=== PATIENT | male | born 1980 | race Caucasian/White ===

== ENCOUNTER 2025-03-19 22:50 | Emergency (ER) | payer SELFPAY ==
[2025-03-19 22:51] VITALS: BP 210/120
[2025-03-19 23:40] VITALS: BP 194/115
--- NOTE | 2025-03-19 23:43 | ED.GENMED ---
History of Present Illness
General
Chief Complaint: Fever
Source: patient
Exam Limitations: none
Time Seen by Provider: 03/19/25 23:15
Nursing documentation reviewed up to this point in time: agreed with
History of Present Illness
History of Present Illness:
Note:
CHIEF COMPLAINT(S)
Fever and congestion.
HISTORY OF PRESENT ILLNESS
The patient is a 44-year-old male with pmh of HTN presenting with a history of fever and congestion over the past day. The symptoms include waking up at 4:30 AM and 11:30 AM feeling extremely hot, with fatigue persisting throughout the day. The
patient reported having a severe headache that has since improved. He experienced some congestion but denied any loss of smell or taste. The patient described a sore throat sensation as having 'sand in his throat,' which resolved. Initial attempts
to relieve symptoms with ibuprofen were ineffective. The patient reported coughing up yellow sputum and mentioned the congestion as similar to a typical sinus infection. No abdominal pain or vomiting was noted. The patient has a history of
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
resolved on follow-up. During this period, his kidneys were affected by high CPK levels necessitating a medication change.
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 He has not been in contact with anyone sick. 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
episodes resulting in significant symptoms. The patient took ibuprofen for the current episode with some effect noted.
PAST MEDICAL AND SURGICAL HISTORY
The patient has a past medical history significant for endocarditis and previous COVID pneumonia.
CHRONIC MEDICAL CONDITIONS SIGNIFICANTLY AFFECTING CARE
History of endocarditis and COVID pneumonia.
SOCIAL HISTORY
The patient reported working with electronics, potentially in a [place] environment.
REVIEW OF SYSTEMS
- Constitutional: Fever, fatigue.
- Neurological: History of a headache.
- Respiratory: Congestion, occasional productive cough with yellowish sputum . No significant pain, loss of smell, or taste reported.
- Gastrointestinal: No abdominal pain or vomiting.
PHYSICAL EXAM
General: Alert, no acute distress.
Skin: Warm, dry.
Head: Normocephalic, atraumatic.
Neck: Supple, trachea midline.
Eye Ears, Nose, Mouth and Throat: Oral mucosa moist.
Cardiovascular: Normal peripheral perfusion, no edema.
Respiratory: Non-labored respirations. No wheezes, rales, or rhonchi
Gastrointestinal: Abdomen nondistended.
Back: Normal range of motion, normal alignment.
Musculoskeletal: Normal ROM, normal strength.
Neurological: Alert and oriented to person, place, time, and situation, no focal neurological deficit observed.
Psychiatric: Cooperative, appropriate mood & affect.
PLAN
1. Conduct blood work to rule out sepsis and assess other potential infections.
2. Perform a COVID-19 test as part of the respiratory symptom evaluation.
3. Consider a chest X-ray to check for inhalation effects or lung involvement.
4. Monitor the effectiveness of ibuprofen and adjust treatment as necessary based on further test results.
DIFFERENTIAL DIAGNOSIS
The Differential Diagnosis includes, in no particular order and is not limited to:
1. Bacterial sinusitis
2. Viral respiratory infection (e.g., COVID-19)
3. Allergic rhinitis
4. Bronchitis
5. Pneumonia
6. Exacerbation of chronic sinusitis
7. Environmental exposure-related symptoms
8. Asthma/reactive airway disease
9. Chronic obstructive pulmonary disease
10. Influenza
CHART REVIEW
Reviewed physician office visit from 06/24/2021, reviewed discharge summary from 06/18/2021 when patient was seen for COVID-pneumonia and iatrogenic endocarditis
MDM/DISPOSITION
44-year-old male presents emergency department today with concerns of a fever and generalized fatigue as well as congestion. Happened the past day. He did test positive for COVID today. He does have a history of sepsis secondary to COVID however
he has no fever, no white count, and his CMP is unremarkable. She also test urinalysis as a source of infection however patient has no urinary symptoms and there is a lot of squamous cells will hold off on treatment at this time. Considering
patient's history of sepsis from COVID, will initiate Paxlovid. Did review case with ED attending. Patient also is very hypertensive in the ED. However no signs of endorgan damage. Patient reports that he stopped his blood pressure meds because
he did not like that he was coughing on the lisinopril and thought that one of the other meds was causing his teeth to be loose in his mouth. Discussed and stressed importance of controlling blood pressure to reduce risk of ACS, stroke etc.
Patient agreed to start amlodipine. Will initiate today. While patient is still acutely hypotensive, reviewed with ED attending will not initiate intravenous antihypertensive at this time. Patient stable for discharge.
Past History
Past History
ED Past Medical History: HTN
ED Past Surgical History: None
Social History
Tobacco: Non-smoker
Alcohol: Occasional
Drug: None
Review of Systems
Review of Systems
All Other Systems: ROS reviewed and negative except as documented in HPI and ROS
Phy Exam
Physical Exam
Physical Exam:
see hpi
Sepsis
Sepsis Screening
Sepsis Assessment: Sepsis Ruled Out
Sepsis Screen
Sepsis Screen: Sepsis Ruled Out
Date: 03/20/25
Time: 07:16
Course
Orders/Labs/Results
Orders:
Orders
03/20/25 00:29
COVID-19 Antigen Urgent
Source: Nasal Swab
Complete Blood Count/With Diff Urgent
Comprehensive Metabolic Panel Urgent
Lactic Acid Urgent
Manual Differential Urgent
Influenza A+B Rapid Molecular Urgent
PRAMOD Source: Nasal Swab
Specimen Description:
03/20/25 00:55
Urinalysis Reflex To Culture Urgent
Date Specimen was Collected: 03/20/25
Time Specimen was Collected: 00:54
Urine Microscopic Reflex Cult Urgent
Urine Culture Urgent
PRAMOD Source: U
Specimen Description:
Date Specimen was Collected: 03/20/25
Time Specimen was Collected: 00:54
03/20/25 02:03
Amlodipine [Norvasc] 10 mg PO NOW STA
03/20/25 02:06
CR Chest - 2 Views Urgent
Comment:
Reason For Exam: cough
03/20/25 03:11
Nirmatrelvir/Ritonavir [Paxlovid 2X150 mg-100 mg Dose Pack] 1 dose PO NOW STA
Abnormal Lab Results
03/20/25 03/20/25
00:29 00:55
MPV 10.7 H fL
(7.4-10.4)
Band Neutrophils 4 H %
(0-3)
Lymphocytes (Manual) 15 L %
(20-51)
Monocytes (Manual) 15 H %
(2-9)
Glucose 103 H mg/dl
(70-99)
Leukocyte Esterase Rfl 1+ A
(Negative)
Urine RBC 3-6 A /HPF
(0-2)
Urine WBC (Reflex) >100 A /HPF
(0-5)
Urine Bacteria (Reflex) Many A
(Negative)
Urine Albumin (Reflex) 1+ A
(Neg - Trace)
SARS-CoV-2 Antigen Positive A
(Negative)
03/20/25 00:29
03/20/25 00:29
Vital Signs
Initial and Last Documented VS:
Initial Vital Signs
Temp Pulse Resp BP Pulse Ox
99.7 F 88 20 210/120 95
03/19/25 22:51 03/19/25 22:51 03/19/25 22:51 03/19/25 22:51 03/19/25 22:51
Last Documented Vital Signs
Temp Pulse Resp BP Pulse Ox
99.4 F 91 20 204/117 95
03/19/25 23:40 03/20/25 02:24 03/20/25 02:24 03/20/25 02:24 03/19/25 23:44
*Pulse Oximetry
SaO2: 95
Patient hypoxic: no
*Critical Care Note
Total Time (30-74mins, 75-104mins- exclusive of procedures): Not Applicable
ED Attending Note
-
Portions of this chart may have been created with voice recognition software.� Occasional wrong word or��sound alike� substitutions may have occurred due to the inherent limitations of voice recognition software.
Discharge Plan
Departure
Patient Disposition: Home (Routine Discharge)
Date of Disposition: 03/20/25
Time of Disposition: 03:21
Patient with high blood pressure during this ER visit?: Yes
Condition: Good
Discharge Problem:
COVID-19, Hypertension
Instructions: COVID-19 in adults (DC), BLOOD PRESSURE
Prescriptions:
New
Paxlovid 300 mg (150 mg x 2)-100 mg tablets,dose pack
See Rx Instructions .ROUTE .COMPLEX Qty: 30 0RF
Rx Instructions:
take TWO 150 mg tablets of nirmatrelvir with ONE 100 mg tablet of ritonavir twice daily for 4 days
amlodipine 5 mg tablet
5 mg PO DAILY Qty: 30 0RF
No Action
aspirin 81 MG tablet,chewable
81 mg PO DAILY 0RF
lisinopril 5 MG tablet
5 mg PO DAILY Qty: 30 0RF
nifedipine 60 MG tablet extended release
60 mg PO BID Qty: 60 0RF
guaifenesin [Mucus Relief ER] 600 MG tablet extended release 12hr
600 mg PO Q12 0RF
zinc gluconate 50 MG tablet
50 mg PO .QOD
cholecalciferol (vitamin D3) [Vitamin D3] 1,000 UNIT capsule
1,000 unit PO DAILY
ascorbic acid (vitamin C) [Vitamin C] 1,000 MG tablet
1,000 mg PO DAILY
naproxen sodium [Aleve] 220 MG tablet
220 mg PO Q12H PRN (Reason: pain)
loratadine 10 MG tablet
10 mg PO DAILY
Referrals:
NONE,* [Family Provider, Internal Medicine]
Activity Restrictions/Additional Instructions:
You received your first dose of Paxlovid today. Starting tomorrow, please take 4 additional days of this medication. You will take 2 tablets of nirmatrelvir and one tablet of nitonavir for 4 additional days.
As discussed, please start taking amlodipine. Please take one tablet once daily. Please follow primary care provider, you have given information for the free clinic.
Please continue to monitor symptoms. PLEASE RETURN TO ER SHOULD YOU DEVELOP CHEST PAIN, TROUBLE BREATHING, INTRACTABLE NAUSEA OR VOMITING, PERSISTENT FEVERS OR CHILLS, ANY OTHER SIGNS OR SYMPTOMS WORRISOME TO YOU.
Interventions
Interventions:
*Risk Screen - Suicide Last Done: 03/19/25 22:51
*General Assessment Last Done: 03/20/25 00:30
*Neglect/Abuse Screening Last Done: 03/19/25 22:51
*ED- Fall Risk Assessment Last Done: 03/20/25 00:30
*ED COVID-19 Vaccine History Last Done: 03/20/25 00:30
*Nursing Disposition Last Done: 03/20/25 03:33
ED- Neurological Assessment Last Done: 03/20/25 00:30
ED- Pulmonary Assessment Last Done: 03/20/25 00:30
Discharge Date and Time
Discharge Date/Time: 03/20/25 03:34
Print Language: THAI
[2025-03-20 00:48] LABS: COVID-19 Antigen Positive (Negative)
[2025-03-20 00:56] LABS: Hematocrit 45.6 % (39.0-52.0); Hemoglobin 15.6 g/dL (13.0-18.0); Mean Corp Hgb Conc. 34.2 g/dL (33.0-37.0); Mean Corpuscular Volume 84.1 fL (80.0-94.0); Platelet Count 191 10^3/uL (130-400); Red Cell Dist. Width 12.6 % (11.5-14.5)
[2025-03-20 01:04] LABS: ALT (SGPT) 34 U/L (0-50); AST (SGOT) 23 U/L (17-59); Albumin 4.0 g/dl (3.5-5.0); Alkaline Phosphatase 94 U/L (38-126); Blood Urea Nitrogen 10 mg/dl (9-20); Calcium 8.4 mg/dl (8.4-10.2); Carbon Dioxide 24 mmol/L (22-30); Chloride 106 mmol/L (98-107); Glucose 103 mg/dl (70-99); Potassium 3.8 mmol/L (3.5-5.1); Sodium 137 mmol/L (135-145); Total Protein 7.2 g/dl (6.3-8.2); eGFR > 60.00
[2025-03-20 01:15] LABS: Urine Character Slightly Cloudy (Clear)
[2025-03-20 01:50] LABS: Absolute Neutrophils -Man Diff 3.4 10^3/uL (1.4-6.5); Normal RBC Morphology Yes; Platelets Checked Yes
[2025-03-20 01:51] LABS: Total Cells Counted 100
[2025-03-20 01:52] LABS: Urine Squamous Cell >30 /LPF (Few)
[2025-03-20 01:55] LABS: Urine Urothelial Cell >30 /LPF (FEW)
[2025-03-20 01:56] LABS: Urine White Cell >100 /HPF (0-5)
[2025-03-20] MEDS: NORVASC 10 MG PO (02:14)
[2025-03-20 02:24] VITALS: BP 204/117
[2025-03-20] MEDS: PAXLOVID 2X150 MG-100 MG DOSE PACK 1 DOSE PO (03:17)
== END 2025-03-20 03:34 | disposition home or self-care (01) ==
LOC: EMR 22:50
PROVIDERS: Physician Assistant; EMERGENCY PHYSICIAN Emergency Medicine
DX: U07.1 COVID-19 (principal); R51.9 Headache, unspecified; I10 Essential (primary) hypertension; Z11.52 Encounter for screening for COVID-19; Z87.01 Personal history of pneumonia (recurrent); Z86.79 Personal history of other diseases of the circulatory system; Z86.16 Personal history of COVID-19; Z88.8 Allergy status to other drugs, medicaments and biological substances
CPT/HCPCS: 99283; 71046; 80053; 81003; 81015; 83605; 85025; 87086; 87502; 87811